=== PATIENT | female | born 1960 | race Hispanic/Latino ===

== ENCOUNTER → 2017-07-14 | Outpatient (CLI) | payer OTHER | END | disposition home or self-care (01) | LOC: OIH 10:14 | PROVIDERS: ATTEND Family Medicine | DX: M47.896 Other spondylosis, lumbar region (principal) | CPT/HCPCS: 72100 ==

== ENCOUNTER → 2017-07-21 | Outpatient (CLI) | payer OTHER | END | disposition home or self-care (01) | LOC: RAH 08:46 | PROVIDERS: ATTEND Family Medicine | DX: I51.7 Cardiomegaly (principal) | CPT/HCPCS: 93306 ==

== ENCOUNTER 2019-02-16 15:57 | Emergency (ER) | payer OTHER | END 2019-02-16 18:01 | disposition home or self-care (01) | LOC: EDH 15:57 | DX: S86.912A Strain of unspecified muscle(s) and tendon(s) at lower leg level, left leg, initial encounter (principal); E11.9 Type 2 diabetes mellitus without complications; I10 Essential (primary) hypertension; Z72.0 Tobacco use; Z90.710 Acquired absence of both cervix and uterus; X58.XXXA Exposure to other specified factors, initial encounter; Y93.89 Activity, other specified; Y92.098 Other place in other non-institutional residence as the place of occurrence of the external cause; Y99.8 Other external cause status | CPT/HCPCS: 93971 ==

== ENCOUNTER 2023-07-22 17:02 | Emergency (ER) | payer OTHER ==
[~2023-07-22] VITALS: Ht 162.6 cm; Wt 86.2 kg
[~2023-07-22 17:02] MED LIST: IBUP-2077 PO
[2023-07-22 17:43] LABS: BASOPHILS # (AUTO) 0.04 K/uL (0.00-0.20); BASOPHILS % (AUTO) 0.3 % (0.0-5.0); EOSINOPHILS # (AUTO) 0.06 K/uL (0.00-0.70); EOSINOPHILS % (AUTO) 0.4 % (0.0-8.0); HEMATOCRIT 43.7 % (36-48); IMMATURE GRANULOCYTE ABSOLUTE 0.06 K/uL (0-1); LYMPHOCYTES # (AUTO) 3.3 K/uL (1.0-4.8); LYMPHOCYTES % (AUTO) 23.9 % (21.0-51.0); MEAN CORPUSCULAR HEMOGLOBIN 30.8 pg (27.0-33.0); MEAN CORPUSCULAR HGB CONC 34.8 g/dL (32.0-36.0); MEAN CORPUSCULAR VOLUME 88.5 fL (79-99); MONOCYTES # (AUTO) 0.8 K/uL (0.1-1.0); MONOCYTES % (AUTO) 5.7 % (3.0-13.0); NEUTROPHILS # (AUTO) 9.5 K/uL (1.8-7.7); NEUTROPHILS % (AUTO) 69.3 % (40.0-77.0); PLATELET COUNT (AUTO) 228 K/uL (130-400); RED BLOOD CELL COUNT(AUTO) 4.94 MIL/uL (4.00-5.50); RED CELL DISTRIBUTION WIDTH 12.5 % (11.0-15.5); WHITE BLOOD COUNT (AUTO) 13.7 K/uL (4.8-10.8)
[2023-07-22 17:51] LABS: CREATININE 0.6 mg/dL (0.5-1.5); POTASSIUM 4.5 mmol/L (3.5-5.1)
[2023-07-22 17:57] LABS: ALBUMIN 3.3 g/dL (3.5-5.0); BILIRUBIN,TOTAL 0.4 mg/dL (0.2-1.0); TOTAL PROTEIN, SERUM 6.6 g/dL (6.0-8.3)
[2023-07-22] MEDS: KETOROLAC 15MG/ML VIAL (15MG/ML) IV ONE (18:21)
[2023-07-22] MEDS ORDERED: DICL25TA11 PO (20:10)
[2023-07-22] MEDS ORDERED: CYCL-309 PO (20:10)
[2023-07-22] MEDS ORDERED: LIDOP TP (20:10)
[2023-07-22] MEDS: MORPHINE 2 MG SYG IVP SCH (20:59)
[2023-07-22 21:00] VITALS: BP 147/80; PULSE 82; RESP 16; O2SAT 97
== END 2023-07-22 21:39 | disposition home or self-care (01) ==
LOC: EDH 17:02
DX: M54.6 Pain in thoracic spine (principal); M19.011 Primary osteoarthritis, right shoulder; E03.9 Hypothyroidism, unspecified; E11.9 Type 2 diabetes mellitus without complications; I10 Essential (primary) hypertension
CPT/HCPCS: 99285; 96374; 76705; 96375; 84484; 80053; 85025; 36415; 73030; 71101; 93005; J2270; J1885

== ENCOUNTER → 2024-03-21 | Outpatient (CLI) | payer OTHER ==
[~2024-03-21] MED LIST changes: +CYCL-309 PO; +DICL25TA11 PO; +LIDOP TP
== END | disposition home or self-care (01) ==
LOC: SHCH 12-17 08:45
PROVIDERS: ATTEND Student in an Organized Health Care Education/Training Program
DX: R06.00 Dyspnea, unspecified (principal)
CPT/HCPCS: 93306

== ENCOUNTER → 2024-08-23 | Outpatient (CLI) | payer OTHER ==
[2024-08-23 12:30] LABS: ALBUMIN 3.7 g/dL (3.5-5.0); BILIRUBIN,TOTAL 0.5 mg/dL (0.2-1.0); CREATININE 0.8 mg/dL (0.5-1.0); POTASSIUM 4.8 mmol/L (3.5-5.1); TOTAL PROTEIN, SERUM 7.5 g/dL (6.0-8.3)
== END | disposition home or self-care (01) ==
LOC: LAB 08-22 14:04
PROVIDERS: ATTEND Student in an Organized Health Care Education/Training Program
DX: R07.9 Chest pain, unspecified (principal)
CPT/HCPCS: 36415; 80053; 80061

== ENCOUNTER → 2024-12-19 | Outpatient (CLI) | payer OTHER ==
[~2024-12-19] MED LIST changes: +IOHEXOL 350 MG/ML 100ML INFUS..BTL IV ONE
--- NOTE | 2024-12-25 15:39 | CARDIOLOGY ---
RAD REPORT: CORNARY CT ANGIO RADIOLOGY REPORT: CORONARY CT ANGIOGRAPHY DATE: Dec 25, 2024 QUALITY: Excellent CLINICAL HISTORY AND INDICATION: [ elevated CACs ] TECHNIQUE: After obtaining a preliminary nuclear medicine technician image, contrast imaging performed on an [employer] [id number]-kilpy scanner. A dedicated, limited window, coronary imaging protocol was used, with single breath-hold, retrospective ECG gating, and automated arrhythmia rejection. 100 cc of low osmolar contrast agent: Omnipaque 350 was delivered via a 18-gauge IV catheter in the right antecubital fossa, using a power injector and followed by 60 cc of normal saline bolus as a chaser. Collimated images were reformatted at 0.5 mm intervals, and sent to an offline independent workstation for interpretation, using 3D anatomic reconstructions: Curved multiplanar reconstructions, maximum intensity projections, and multiplanar imaging. No metoprolol was administered prior to scanning due to low baseline heart rate. 0.4 mg SL nitroglycerin was given. CORONARY ARTERY DESCRIPTIONS: The coronary arteries arise in normal position. Left main coronary artery: Normal caliber vessel that bifurcates into the LAD and LCx. No stenosis. Left anterior descending coronary artery: Normal caliber vessel and gives rise to diagonal and septal branches. No stenosis. Left circumflex coronary artery: Normal caliber, nondominant and gives rise to two large OM branches. No stenosis. Right coronary artery: Large, dominant vessel giving rise to the PL and PDA branches. There is calcified plaque in the proximal RCA with 20-30% stenosis. CAD-RADs: 2, mild non-obstructive CAD. Thoracic Aorta: Normal diameter. Ira Spivey MD Cardiovascular Disease [facility] IRA SPIVEY MD Dec 25, 2024 15:39
== END | disposition home or self-care (01) ==
LOC: RAH 09:54
PROVIDERS: ATTEND Student in an Organized Health Care Education/Training Program
DX: I25.10 Atherosclerotic heart disease of native coronary artery without angina pectoris (principal); R07.9 Chest pain, unspecified
CPT/HCPCS: 75574; Q9967

== ENCOUNTER 2025-03-31 07:15 | Day surgery (SDC) | payer OTHER ==
[2025-03-29 11:03] LABS: IMMATURE GRANULOCYTE ABSOLUTE 0.03 K/uL (0-1); NUCLEATED RED BLOOD CELLS 0.0 % (0.0-0.19); PLATELET COUNT (AUTO) 241 K/uL (130-400); RED BLOOD CELL COUNT(AUTO) 5.08 MIL/uL (4.00-5.50); RED CELL DISTRIBUTION WIDTH 12.6 % (11.0-15.5); WHITE BLOOD COUNT (AUTO) 7.4 K/uL (4.8-10.8)
[2025-03-29 11:14] LABS: CREATININE 0.5 mg/dL (0.5-1.0); GLOMERULAR FILTR. RATE CALC 103.0 mL/min (>90); GLUCOSE,RANDOM 86.0 mg/dL (70-105); SODIUM SERUM 140.0 mmol/L (136-145); UREA NITROGEN, BLOOD 15.0 mg/dL (7-18)
[2025-03-29 11:43] LABS: INR 0.97 (0.85-1.15)
[2025-03-30 09:06] VITALS: BP 130/58; PULSE 69; RESP 17; TEMP 97.5
[2025-03-31] VITALS (16 sets, daily range): BP systolic 93–121; BP diastolic 54–71; PULSE 59–66; RESP 14–18; TEMP 96.9–97.3
[~2025-03-31] VITALS: Ht 157.5 cm; Wt 96.6 kg
[~2025-03-31 07:15] MED LIST changes: +AMLO-258 PO; +ATOR20TA65 PO; -CYCL-309 PO; -DICL25TA11 PO; +EMPA25TA PO; -IBUP-2077 PO; +INSU200I4 SQ; -IOHEXOL 350 MG/ML 100ML INFUS..BTL IV ONE; +LEVO100C5 PO; -LIDOP TP; +LINA290C PO; +LISI5TAB21 PO; +METO-391 PO; +PANT40TA54 PO; +vitamin d PO
[2025-03-31] MEDS ORDERED: PROMETHAZINE HCL 25 MG/ML 1ML AMPULE IM PRN (08:00)
[2025-03-31] MEDS ORDERED: LIDOCAINE PF 100MG/5ML (2%) SYRINGE 5ML ONE (09:59)
[2025-03-31] MEDS ORDERED: MIDAZOLAM HCL 1 MG/ML 2ML VIAL ONE (09:59)
[2025-03-31] MEDS ORDERED: ACET-2079 PO (10:02)
--- NOTE | 2025-03-31 10:15 | EKG ---
[facility] Test Date: 2025-03-31 Test Time: 07:30:24 Pat Name: YESENIA BALL Department: [facility] Room: [facility] Gender: F Photographic Laboratory Technician: [id number] : 1960 Requested By: CARLO OLMEDO Order Number: [id number] Reading MD: Wilfred Blount Measurements Intervals Topmost Rate: 60 P: 37 NM: 187 QRS: -2 QRSD: 84 T: 7 QT: 391 QTc: 390 Interpretive Statements Sinus rhythm Inferior infarct, old Compared to ECG 07/22/2023 17:17:50 Myocardial infarct finding now present ST (T wave) deviation no longer present Electronically Signed On 03-31-2025 19:05:59 SENIOR PRODUCTION SUPERVISOR by Wilfred Blount Please click the below link to view image of tracing.
[2025-03-31] MEDS: 0.9%NACL 1000ML 1,000 ML IV ONE (10:32)
[2025-03-31] MEDS ORDERED: FLUT1BLS10 IH (10:37)
--- NOTE | 2025-03-31 12:35 | NUR ---
Full and complete discharge instructions given to Patient and Family both verbally and in writing. Tolerated fluids and voided in bathroom. PT ambulated in DP Unit and completed crutch training. Patient remains Neurovascularly intact. Dressing clean, dry and intact. PIV removed with catheter tip intact. W/C to POV with Family to home.
--- NOTE | 2025-03-31 17:53 | OP ---
Operative Note: DATE OF PROCEDURE: 03/31/25 SURGEON: YOKO SCHMIDT MD SEWING MACHINE BOBBIN WINDER: Kathleen Byrne ANESTHESIA: General ANESTHESIOLOGIST/ENTRY LEVEL TRUCK DRIVER: Kp Powell PREOPERATIVE DIAGNOSIS: Left knee medial meniscus tear, lateral meniscus tear, and chondromalacia POSTOPERATIVE DIAGNOSIS: Left knee medial meniscus tear, lateral meniscus tear, and chondromalacia, and plica PROCEDURE: Left knee arthroscopic partial medial and partial lateral meniscectomy with a resection of medial suprapatellar plica ESTIMATED BLOOD LOSS: 2 cc INDICATIONS: 65-year-old female with a history of left knee pain popping lock ing. She used found on x-rays to have minimal degenerative changes. On MRI it was noted that she had medial and lateral meniscus tears in addition to some mild cartilage damage. After discussion of the risks, benefits, and alternatives, the patient voluntarily agreed to undergo the aforementioned procedure. FINDINGS: On insertion of the arthroscope into the joint we noted a some mild grade 2 chondromalacia of the lateral patellar facet. We are unable to visualize the medial patellar facet secondary to a plica. Tracking appeared slightly lateral of the patella in the trochlea. A large medial plica was present then engaged the medial femoral condyle when being brought into flexion. The lateral gutter was clean with mild synovitis and no loose bodies. Lateral compartment showed degenerative fraying of the free edge of the meniscus with some grade 2 chondromalacia to the tibial plateau and grade 1 to the femur. A the medial compartment showed a large tear in the body with complex tearing extending anterior and posterior in the meniscus. Diffuse grade 3 chondromalacia on the femur with focal grade 4 lesions on the femur and tibia. We resected the plica in the medial aspect of the joint and suprapatellar pouch visualizing some grade 2-3 chondromalacia on the anterior portion of the medial femoral condyle. We performed partial meniscectomy in the lateral compartment debriding the meniscus back to a stable leading edge. In the medial compartment we performed a large debridement of the meniscus to a stable leading edge that uncovered some small grade 4 lesions in the tibia. After resecting this tissue we are able to visualize a focal grade 4 lesion in the femoral condyle. Notch was visualized with the ACL intact. Medial gutter with no loose bodies. DESCRIPTION OF PROCEDURE: We then began the procedure by making a standard anterolateral portal with an 11 blade and inserted our arthroscope through here. We made our anterior medial portal under direct visualization using spinal needle for localization. We then inserted our probe and performed our diagnostic arthroscopy with the above mentioned findings. At this point we inserted the shaver device and performed our meniscal debridement. We then inserted the shaver and further debrided medial and lateral meniscus were debrided. We inserted the shaver into the suprapatellar region and resected the medial plica. Once we were happy with our debridement, we then thoroughly irrigated out the wound with normal saline. We removed as much fluid from the knee as possible. We then injected local anesthetic within the capsule of the joint as well as around the portal sites. Our portal sites were then repaired using 3-0 nylon in simple fashion. Sterile dressing was then applied consisting of Xeroform, 4 x 4's, ABD, cast padding, and an Adi wrap. The patient was then awakened from anesthesia and taken to recovery room in stable condition. YOKO SCHMIDT MD Mar 31, 2025 17:53
== END 2025-03-31 12:50 | disposition home or self-care (01) ==
LOC: DAH 07:15
PROVIDERS: ATTEND Student in an Organized Health Care Education/Training Program
DX: S83.282A Other tear of lateral meniscus, current injury, left knee, initial encounter (principal); S83.232A Complex tear of medial meniscus, current injury, left knee, initial encounter; M94.262 Chondromalacia, left knee; I10 Essential (primary) hypertension; M17.12 Unilateral primary osteoarthritis, left knee; E11.9 Type 2 diabetes mellitus without complications; E78.00 Pure hypercholesterolemia, unspecified; J44.89 Other specified chronic obstructive pulmonary disease; Z79.01 Long term (current) use of anticoagulants; Z98.891 History of uterine scar from previous surgery; Z82.49 Family history of ischemic heart disease and other diseases of the circulatory system; Z83.3 Family history of diabetes mellitus; Z79.899 Other long term (current) drug therapy; Z98.890 Other specified postprocedural states; W19.XXXA Unspecified fall, initial encounter; Y93.89 Activity, other specified; Y92.89 Other specified places as the place of occurrence of the external cause; Y99.8 Other external cause status
CPT/HCPCS: 80048; 85025; 85610; 85730; 36415; 29880; 82948 ×2; 97161; 97116; 93005; J1100; A4223 ×2; A4663; A4649 ×2; J3010 ×2; J7030; J0665 ×2; J2003; J3490; J2250; J2704; J2405; J0690 ×2; A6223; A4215; A4213; A4222; A4221; A4216; A6450